=== PATIENT | female | born 2000 | race Caucasian/White ===

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

== ENCOUNTER 2019-08-04 16:22 | Emergency (ER) | payer BC ==
--- NOTE | 2019-08-04 16:29 | ERPHSYRPT ---
- History of Present Illness Time Seen by Provider: 08/04/19 16:29 Historian: patient Exam Limitations: no limitations Physician History: This is a 19-year-old white female who is 20 weeks and presents with flank pain. She does not have abdominal pain she does not have any vaginal discharge. She is not having any vaginal bleeding. Her symptoms have been present for approximately 5 days and getting worse. She has not had fevers. She has had no diarrhea. No cough symptoms. Timing/Duration: day(s) Activities at Onset: none Abdominal Pain Onset Location: flank (Bilateral) Pain Radiation: no radiation Severity of Pain-Max: mild Severity of Pain-Current: mild Modifying Factors: Improves With: nothing Associated Symptoms: denies symptoms Previous symptoms: no prior history Allergies/Adverse Reactions: nickel Allergy (Verified 08/04/19 16:35) Home Medications: Vit#96/Ferrous Fum/FA [ Tablet] 1 ea DAILY 08/04/19 [History] Hx Influenza Vaccination/Date Given: No Hx Pneumococcal Vaccination/Date Given: No - Review of Systems Constitutional: No Symptoms Eyes: No Symptoms Ears, Nose, & Throat: No Symptoms Respiratory: No Symptoms Cardiac: No Symptoms Abdominal/Gastrointestinal: No Symptoms Genitourinary Symptoms: No Symptoms Musculoskeletal: No Symptoms Skin: No Symptoms Neurological: No Symptoms Psychological: No Symptoms Endocrine: No Symptoms Hematologic/Lymphatic: No Symptoms Immunological/Allergic: No Symptoms All Other Systems: Reviewed and Negative - Past Medical History Pertinent Past Medical History: Yes Neurological History: Other ENT History: No Pertinent History Cardiac History: No Pertinent History Respiratory History: No Pertinent History Endocrine Medical History: No Pertinent History Musculoskeletal History: No Pertinent History GI Medical History: No Pertinent History History: No Pertinent History Psycho-Social History: No Pertinent History Female Reproductive Disorders: No Pertinent History Other Medical History: febrile seizures as a young child - Past Surgical History Past Surgical History: Yes Neuro Surgical History: No Pertinent History Cardiac: No Pertinent History Respiratory: No Pertinent History Gastrointestinal: Cholecystectomy Genitourinary: No Pertinent History Musculoskeletal: No Pertinent History Female Surgical History: No Pertinent History - Social History Smoking Status: Never smoker Exposure to second hand smoke: Yes Drug Use: none Patient Lives Alone: No - Nursing Vital Signs Nursing Vital Signs: Initial Vital Signs Pulse Rate 104 H 08/04/19 17:23 Respiratory Rate 18 08/04/19 17:23 Blood Pressure 133/62 08/04/19 17:23 O2 Sat by Pulse Oximetry 97 08/04/19 17:23 Pain Scale Pain Intensity 0 - Physical Exam General Appearance: no apparent distress, alert, anxiety Eye Exam: PERRL/EOMI, eyes nml inspection Ears, Nose, Throat Exam: dry mucous membranes Neck Exam: normal inspection, non-tender, supple, full range of motion Respiratory Exam: normal breath sounds, lungs clear, airway intact, No chest tenderness, No respiratory distress Cardiovascular Exam: regular rate/rhythm, normal heart sounds, normal peripheral pulses Gastrointestinal/Abdomen Exam: soft, normal bowel sounds, No tenderness Pelvic Exam: not done Rectal Exam: not done Back Exam: normal inspection, normal range of motion, CVA tenderness (Bilateral mild) Extremity Exam: normal inspection, normal range of motion, pelvis stable Neurologic Exam: alert, oriented x 3, cooperative, 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 Skin Exam: normal color, warm, dry Lymphatic Exam: No adenopathy SpO2 Interpretation: normal O2 Delivery: Room Air - Course Nursing assessment & vital signs reviewed: Yes Ordered Tests: Active Orders 24 hr Category Date Time Status IV Insertion STAT Care 08/04/19 16:43 Active CULTURE,URINE Stat Lab 08/04/19 16:40 Received UA W/RFX UR CULTURE Stat Lab 08/04/19 16:40 Completed Medication Summary Generic Name Dose Route Start Last Admin Trade Name Freq PRN Reason Stop Dose Admin Ceftriaxone Sodium/Dextrose 1 g in 50 mls @ 100 mls/hr 08/04/19 17:02 17:14 Rocephin 1 Gm-D5w 50 Ml Bag IV 08/04/19 17:31 100 ml/hr STAT STA 100 mls/hr Administration Sodium Chloride 1,000 mls @ 999 mls/hr 08/04/19 17:04 08/04/19 17:13 Sodium Chloride 0.9% 1000 Ml IV 08/04/19 18:04 999 mls/hr .Q1H1M STA Administration Discontinued Medications Generic Name Dose Route Start Last Admin Trade Name Freq PRN Reason Stop Dose Admin Sodium Chloride Confirm 08/04/19 17:06 Sodium Chloride 0.9% 1000 Ml Administered 08/04/19 17:07 Dose 1,000 mls @ ud .ROUTE .[facility] ONE Ceftriaxone Sodium/Dextrose Confirm 08/04/19 17:06 Rocephin 1 Gm-D5w 50 Ml Bag Administered 08/04/19 17:07 Dose 1 g in 50 mls @ ud IV .[facility] ONE Lab/Rad Data: Laboratory Results 08/04/19 Range/Units 16:40 Urine Color [place] (YELLOW) Urine Appearance TURBID (CLEAR) Urine pH 6.0 (5-6) Ur Specific [place] 1.017 (1.005-1.025) Urine Protein 100 (Negative) Urine Ketones MODERATE (NEGATIVE) Urine Blood SMALL (0-5) Norman/ul Urine Nitrite POSITIVE (NEGATIVE) Urine Bilirubin NEGATIVE (NEGATIVE) Urine Urobilinogen NEGATIVE (0-1) mg/dL Ur Leukocyte Esterase LARGE (NEGATIVE) Urine WBC (Auto) >100 (0-5) /HPF Urine RBC (Auto) 26-50 (0-2) /HPF U Epithel Cells (Auto) NONE (FEW) /HPF Urine Bacteria (Auto) MODERATE (NEGATIVE) /HPF Urine Mucus (Auto) SLIGHT (NEGATIVE) /HPF Urine Culture Reflexed YES (NO) Urine Glucose NEGATIVE (NEGATIVE) mg/dL - Progress Progress: improved Counseled pt/family regarding: lab results, diagnosis, need for follow-up - Departure Departure Disposition: Home Clinical Impression: Urinary tract infection during Condition: Stable Critical Care Time: No Referrals: KEILA GABRIEL [Primary Care Provider] - Additional Instructions: Drink plenty of fluids. Use Tylenol for pain and fever. Follow-up with your center medical director for persistent symptoms. Take medication as prescribed Prescriptions: Cephalexin Mh 500 mg [Keflex 500 mg] 500 mg PO TID #21 capsule
[2019-08-04 16:50] LABS: Appearance TURBID (CLEAR); Bacteria MODERATE /HPF (NEGATIVE); Bilirubin NEGATIVE (NEGATIVE); Blood SMALL Ery/ul (0-5); Glucose NEGATIVE (NEGATIVE); Ketones MODERATE (NEGATIVE); Leukocyte Esterase LARGE (NEGATIVE); Mucus SLIGHT /HPF (NEGATIVE); Nitrite POSITIVE (NEGATIVE); Protein,Urine Dip 100 (Negative); RBC 26-50 /HPF (0-2); Specific Gravity 1.017 (1.005-1.025); Urobilinogen NEGATIVE mg/dL (0-1); WBC >100 /HPF (0-5)
[2019-08-04] MEDS ORDERED: ROCEPHIN 1 Gm-D5w 50 ml Bag** 1 G/50 ML IVPB IV STA (17:02)
[2019-08-04] MEDS ORDERED: Sodium Chloride 0.9% 1000 ML 1,000 ML IV STA (17:04)
[2019-08-04] MEDS ORDERED: Sodium Chloride 0.9% 1000 ML 1,000 ML ONE (17:06)
[2019-08-04] MEDS ORDERED: ROCEPHIN 1 Gm-D5w 50 ml Bag** 1 G/50 ML IVPB IV ONE (17:06)
[2019-08-04 18:03] VITALS: BP 118/70; PULSE 97; O2SAT 98
== END 2019-08-04 18:04 | disposition home or self-care (01) ==
LOC: ED 16:22
DX: O23.42 Unspecified infection of urinary tract in pregnancy, second trimester (principal); Z3A.20 20 weeks gestation of pregnancy
CPT/HCPCS: 36000; 81001; 87077; 87086; 87186; 99284; J0696

== ENCOUNTER 2019-10-07 14:23 | Observation (INO) | payer BC ==
[2019-10-07 14:49] VITALS: BP 134/60; PULSE 71
== END 2019-10-07 15:40 | disposition home or self-care (01) ==
LOC: OB 14:23
PROVIDERS: ADMIT Family Medicine; ATTEND Family Medicine
DX: Z34.83 Encounter for supervision of other normal pregnancy, third trimester (principal)
CPT/HCPCS: G0378

== ENCOUNTER 2019-11-06 17:08 | Observation (INO) | payer BC ==
[2019-11-06 17:45] VITALS: BP 115/57; PULSE 79; O2SAT 97
== END 2019-11-06 18:08 | disposition home or self-care (01) ==
LOC: OB 17:08
PROVIDERS: ADMIT Family Medicine; ATTEND Family Medicine
DX: Z34.83 Encounter for supervision of other normal pregnancy, third trimester (principal)
CPT/HCPCS: 59025; G0378

== ENCOUNTER 2019-11-10 13:10 | Observation (INO) | payer BC ==
--- NOTE | 2019-11-10 18:58 | XRAY ---
Indication: Evaluate DONTE. Limited OB ultrasound demonstrates single viable intrauterine currently in cephalic presentation with heart rate 135 BPM. Four-quadrant DONTE is 10.8 cm.
== END 2019-11-10 14:30 | disposition home or self-care (01) ==
LOC: OB 13:10
PROVIDERS: ADMIT Family Medicine; ATTEND Family Medicine
DX: Z34.93 Encounter for supervision of normal pregnancy, unspecified, third trimester (principal)
CPT/HCPCS: 59025; 76815; G0378

== ENCOUNTER 2019-11-12 16:31 | Observation (INO) | payer BC ==
[2019-11-12 17:10] VITALS: BP 118/58; PULSE 77
[2019-11-12 17:19] LABS: Absolute Neutrophil Ct (ANC) 5.57 (1.4-6.9); BASOPHIL % 0.3 % (0.0-0.4); Basophil (Absolute #) 0.02 (0-0.4); Eosinophil % 0.8 % (0.00-5.0); Eosinophil (Absolute #) 0.06 (0-0.5); Hematocrit 33.8 % (35-47); Hemoglobin 11.1 gm/dl (12.0-16.0); Lymphocytes % 15.4 % (24.0-44.0); Mean Cell Volume 89.2 fl (78-100); Mean Corpuscular Hemoglobin 29.3 pg (26-32); Mean Corpuscular Hgb Concent. 32.8 g/dl (32-36); Mean Platelet Volume 10.8 fl (7.5-11.0); Monocytes % 5.6 % (0.0-12.0); Neutrophil % 77.9 % (36.0-66.0); Platelet Count 189 K/mm3 (150-450); Red Blood Count 3.79 M/mm3 (4.1-5.4); Red Cell Distribution Width 12.7 % (11.5-14.0); White Blood Count 7.2 K/mm3 (4.0-10.5)
[2019-11-12 18:00] LABS: ALBUMIN 3.4 g/dL (3.5-5.0); ALKALINE PHOSPHATASE 110 U/L (38-126); ANION GAP 10.7 MEQ/L (5-15); BLOOD UREA NITROGEN 9 mg/dL (7-17); CHLORIDE 102 mmol/L (98-107); Calcium 9.2 mg/dL (8.4-10.2); Carbon Dioxide 26 mmol/L (22-30); Creatinine 1 0.53 mg/dL (0.52-1.04); Glucose 80 mg/dL (74-106); Potassium 3.8 mmol/L (3.5-5.1); SGOT/AST 22 U/L (14-36); SGPT/ALT 17 U/L (0-35); SODIUM 135 mmol/L (137-145); Total Protein 6.8 g/dL (6.3-8.2)
== END 2019-11-12 17:53 | disposition home or self-care (01) ==
LOC: OB 16:31
PROVIDERS: ADMIT Family Medicine; ATTEND Family Medicine
DX: O36.5999 Maternal care for other known or suspected poor fetal growth, unspecified trimester, other fetus (principal)
CPT/HCPCS: 36415; 59025; 80053; 83036; 84443; 85025; G0378

== ENCOUNTER 2019-11-16 08:46 | Observation (INO) | payer BC ==
[2019-11-16 13:13] VITALS: BP 120/64; PULSE 72
--- NOTE | 2019-11-16 14:15 | XRAY ---
Indication: Intrauterine growth retardation. Ultrasound biophysical profile study was performed. Comparison: None for this . There is a single viable intrauterine in cephalic presentation with heart rate 142 BPM. Four-quadrant DONTE is 11.6 cm. 2 points given for breathing, movements, tone, and qualitative amniotic fluid volume. Impression: Total biophysical profile score is 8 out of 8.
== END 2019-11-16 14:05 | disposition home or self-care (01) ==
LOC: LAB 08:46 → OB 12:28
PROVIDERS: ADMIT Obstetrics & Gynecology; ATTEND Obstetrics & Gynecology
DX: Z34.83 Encounter for supervision of other normal pregnancy, third trimester (principal)
CPT/HCPCS: 36415; 59025; 76818; 82951; 82952; G0378

== ENCOUNTER 2019-11-19 13:40 | Observation (INO) | payer BC ==
[2019-11-19 15:35] VITALS: BP 112/63; PULSE 78
== END 2019-11-19 14:50 | disposition home or self-care (01) ==
LOC: OB 13:40
PROVIDERS: ADMIT Family Medicine; ATTEND Family Medicine
DX: Z34.83 Encounter for supervision of other normal pregnancy, third trimester (principal)
CPT/HCPCS: 59025; G0378

== ENCOUNTER 2019-11-23 14:35 | Observation (INO) | payer BC | END 2019-11-23 16:02 | disposition home or self-care (01) | LOC: OB 14:35 | PROVIDERS: ADMIT Family Medicine; ATTEND Family Medicine | DX: Z34.83 Encounter for supervision of other normal pregnancy, third trimester (principal) | CPT/HCPCS: 59025; G0378 ==

== ENCOUNTER 2019-12-09 16:27 | Inpatient (IN) | payer BC ==
[2019-12-09] MEDS ORDERED: Cervidil 10 MG VAG SCH (18:00)
[2019-12-09] MEDS ORDERED: BRETHINE 1 MG/ML SQ PRN (18:00)
[2019-12-09 21:53] LABS: Absolute Neutrophil Ct (ANC) 5.85 (1.4-6.9); BASOPHIL % 0.3 % (0.0-0.4); Basophil (Absolute #) 0.02 (0-0.4); Eosinophil % 1.8 % (0.00-5.0); Eosinophil (Absolute #) 0.14 (0-0.5); Hematocrit 33.1 % (35-47); Hemoglobin 10.6 gm/dl (12.0-16.0); Lymphocyte (Absolute #) 1.19 (1.0-4.6); Lymphocytes % 15.4 % (24.0-44.0); Mean Cell Volume 88.5 fl (78-100); Mean Corpuscular Hemoglobin 28.3 pg (26-32); Mean Platelet Volume 11.7 fl (7.5-11.0); Monocyte (Absolute #) 0.54 (0.0-1.3); Neutrophil % 75.5 % (36.0-66.0); Platelet Count 210 K/mm3 (150-450); Red Blood Count 3.74 M/mm3 (4.1-5.4); Red Cell Distribution Width 13.4 % (11.5-14.0); White Blood Count 7.7 K/mm3 (4.0-10.5)
[2019-12-09 23:49] LABS: Amphetamine,Urine NEGATIVE (NEGATIVE); Barbiturate,Urine NEGATIVE (NEGATIVE); Benzodiazepine,Urine NEGATIVE (NEGATIVE); Cocaine,Urine NEGATIVE (NEGATIVE); Methadone,Urine NEGATIVE (NEGATIVE); Opiate,Urine NEGATIVE (NEGATIVE); PCP,Urine NEGATIVE (NEGATIVE); THC,Urine POSITIVE (NEGATIVE)
[2019-12-10] MEDS ORDERED: PITOCIN 30 UNITS/ LR 500 ML 30 UNITS/500 ML IV.SOLN. IV SCH (07:00)
[2019-12-10] MEDS ORDERED: XYLOCAINE 1% HCL 20 ML MDV IJ PRN (07:00)
[2019-12-10] MEDS: Lactated Ringers 1,000 ML IV SCH ×2 (08:41→09:51)
[2019-12-10] MEDS ORDERED: OMNIPEN 2 GM*** 2 G in Sodium Chloride 100ML MINI-BAG PLUS 100 ML IV ONE (08:52)
[2019-12-10] MEDS ORDERED: Anucort-HC SUPPOSITORY PR PRN (10:25)
[2019-12-10] MEDS ORDERED: TUCKS TP PRN (10:25)
[2019-12-10] MEDS ORDERED: Restoril 15 MG PO PRN (10:25)
[2019-12-10] MEDS ORDERED: Mylicon 80MG PO PRN (10:25)
[2019-12-10] MEDS ORDERED: Ambien 10 MG PO PRN (10:25)
[2019-12-10] MEDS ORDERED: Dulcolax 10 MG SUPP PR PRN (10:25)
[2019-12-10] MEDS ORDERED: CORTISONE 1% CREAM TP PRN (10:25)
[2019-12-10] MEDS ORDERED: Dermoplast Spray TP PRN (10:25)
[2019-12-10] MEDS: MOTRIN 400 MG PO PRN ×2 (10:49→17:47)
[2019-12-10] MEDS: TYLENOL EXTRA STRENGTH 500 MG PO PRN (14:09)
[2019-12-10] MEDS: THERAGRAN MULTIVITAMIN PO SCH (17:48)
[2019-12-10] MEDS: NORCO 5/325 MG PO PRN (20:02)
[2019-12-10] MEDS: Colace 100 MG PO SCH (21:10)
[2019-12-11] MEDS: MOTRIN 400 MG PO PRN ×3 (00:06→20:01)
[2019-12-11] MEDS: NORCO 5/325 MG PO PRN ×2 (01:26→21:11)
[2019-12-11 05:26] LABS: Absolute Neutrophil Ct (ANC) 6.69 (1.4-6.9); BASOPHIL % 0.3 % (0.0-0.4); Basophil (Absolute #) 0.03 (0-0.4); Eosinophil % 1.7 % (0.00-5.0); Eosinophil (Absolute #) 0.16 (0-0.5); Hematocrit 32.1 % (35-47); Hemoglobin 10.2 gm/dl (12.0-16.0); Lymphocytes % 19.2 % (24.0-44.0); Mean Cell Volume 89.2 fl (78-100); Mean Corpuscular Hemoglobin 28.3 pg (26-32); Mean Corpuscular Hgb Concent. 31.8 g/dl (32-36); Mean Platelet Volume 11.7 fl (7.5-11.0); Monocytes % 7.5 % (0.0-12.0); Neutrophil % 71.3 % (36.0-66.0); Platelet Count 173 K/mm3 (150-450); Red Cell Distribution Width 13.2 % (11.5-14.0); White Blood Count 9.4 K/mm3 (4.0-10.5)
[2019-12-11] MEDS: THERAGRAN MULTIVITAMIN PO SCH (09:01)
[2019-12-11] MEDS: FERREX 150 PO SCH (09:02)
[2019-12-11] MEDS: Colace 100 MG PO SCH ×2 (09:02→21:12)
[2019-12-11] MEDS ORDERED: FERROUS FUM PO SCH (10:00)
[2019-12-11] MEDS ORDERED: [UNRECOGNIZED DRUG - OTHER] PO SCH (10:00)
[2019-12-11] MEDS ORDERED: PRENATAL VIT PO SCH (10:00)
[2019-12-11] MEDS: TYLENOL EXTRA STRENGTH 500 MG PO PRN (14:06)
[2019-12-12] MEDS: MOTRIN 400 MG PO PRN (01:34)
[2019-12-12] MEDS: NORCO 5/325 MG PO PRN (02:43)
[2019-12-12 03:17] VITALS: O2SAT 98
[2019-12-12] MEDS: THERAGRAN MULTIVITAMIN PO SCH (09:20)
[2019-12-12] MEDS: FERREX 150 PO SCH (09:20)
[2019-12-12] MEDS: Colace 100 MG PO SCH (09:20)
[2019-12-12 09:43] VITALS: BP 122/68; PULSE 62
== END 2019-12-12 12:45 | disposition home or self-care (01) | DRG 807 ==
LOC: OB 17:56 → OBSVTOIN 12-10 08:35 → MED SURG 12-11 19:54
PROVIDERS: ADMIT Family Medicine; ATTEND Family Medicine
PROC: 10E0XZZ Delivery of Products of Conception, External Approach (ICD-10-PCS; principal; 2019-12-10)
DX: O80 Encounter for full-term uncomplicated delivery (principal); Z37.0 Single live birth; Z3A.39 39 weeks gestation of pregnancy
CPT/HCPCS: 36415; 80307; 85025; G0378; J0290; J2590; A9270-GY

== ENCOUNTER 2020-09-02 16:48 | Observation (INO) | payer BC ==
[2020-09-02 18:24] LABS: Appearance CLEAR (CLEAR); Bacteria RARE /HPF (NEGATIVE); Bilirubin NEGATIVE (NEGATIVE); Blood NEGATIVE Ery/ul (0-5); Epithelial Cells RARE /HPF (FEW); Glucose NEGATIVE (NEGATIVE); Ketones NEGATIVE (NEGATIVE); Leukocyte Esterase NEGATIVE (NEGATIVE); Nitrite NEGATIVE (NEGATIVE); Protein,Urine Dip NEGATIVE (Negative); Specific Gravity 1.003 (1.005-1.025); Urobilinogen NEGATIVE mg/dL (0-1)
[2020-09-02 19:58] VITALS: BP 129/78; PULSE 74; O2SAT 99
== END 2020-09-02 19:30 | disposition home or self-care (01) ==
LOC: OB 16:48
PROVIDERS: ADMIT Family Medicine; ATTEND Family Medicine
DX: Z34.82 Encounter for supervision of other normal pregnancy, second trimester (principal); Z3A.27 27 weeks gestation of pregnancy
CPT/HCPCS: 81001; G0378

== ENCOUNTER 2020-10-18 17:50 | Observation (INO) | payer BC ==
[2020-10-18 18:32] LABS: Absolute Neutrophil Ct (ANC) 5.96 (1.4-6.9); BASOPHIL % 0.3 % (0.0-0.4); Basophil (Absolute #) 0.02 (0-0.4); Eosinophil % 0.9 % (0.00-5.0); Eosinophil (Absolute #) 0.07 (0-0.5); Hematocrit 30.9 % (35-47); Hemoglobin 9.5 gm/dl (12.0-16.0); Lymphocytes % 14.5 % (24.0-44.0); Mean Cell Volume 83.7 fl (78-100); Mean Corpuscular Hemoglobin 25.7 pg (26-32); Mean Corpuscular Hgb Concent. 30.7 g/dl (32-36); Mean Platelet Volume 10.8 fl (7.5-11.0); Monocyte (Absolute #) 0.44 (0.0-1.3); Monocytes % 5.8 % (0.0-12.0); Neutrophil % 78.5 % (36.0-66.0); Platelet Count 203 K/mm3 (150-450); Red Blood Count 3.69 M/mm3 (4.1-5.4); Red Cell Distribution Width 13.7 % (11.5-14.0); White Blood Count 7.6 K/mm3 (4.0-10.5)
[2020-10-18 18:41] LABS: Creatinine, Urine Random 164.3 mg/dl
[2020-10-18 18:52] LABS: ALBUMIN 3.4 g/dL (3.5-5.0); ALKALINE PHOSPHATASE 126 U/L (38-126); ANION GAP 11.5 MEQ/L (5-15); BLOOD UREA NITROGEN 5 mg/dL (7-17); CHLORIDE 106 mmol/L (98-107); Calcium 8.8 mg/dL (8.4-10.2); Carbon Dioxide 20 mmol/L (22-30); Creatinine 1 0.46 mg/dL (0.52-1.04); EST GLOMERULAR FILTRATION RATE > 60.0 ML/MIN; Glucose 104 mg/dL (74-106); Potassium 3.5 mmol/L (3.5-5.1); SGOT/AST 18 U/L (14-36); SGPT/ALT 11 U/L (0-35); SODIUM 134 mmol/L (137-145); Total Protein 6.6 g/dL (6.3-8.2)
[2020-10-18 19:47] VITALS: BP 120/76; PULSE 70; O2SAT 97
--- NOTE | 2020-10-19 08:40 | XRAY ---
Indication: Low heart tones. 2-dimensional OB ultrasound performed. Comparison: July 25, 2020. Again there is a single viable intrauterine now in cephalic presentation. heart rate 139 BPM. anatomy previously documented. BPD measures 8.32 cm corresponding to 33 weeks 3 days. HC measures 31.38 cm corresponding to 35 weeks 1 day. AC measures 29.60 cm corresponding to 33 weeks 4 days. FL measures 6.52 cm corresponding to 33 weeks 4 days. Estimated weight 5 lb. 0 oz., +/-12 ounces. Approximately 3 percentile. DONTE is 12.4 cm. Impression: Again single viable intrauterine with mean gestational age 34 weeks 0 days. There has been progression of . No new/acute findings.
--- NOTE | 2020-10-19 08:58 | XRAY ---
Indication: Low heart tones. Ultrasound biophysical profile study performed. Comparison: None for this . There is a single intrauterine with heart rate 139 bpm. Four-quadrant DONTE is 12.4 cm. 2 points given for breathing, movements, tone, and qualitative amniotic fluid volume. Impression: Total biophysical profile score is 8 out of 8.
== END 2020-10-18 19:55 | disposition home or self-care (01) ==
LOC: OB 17:50
PROVIDERS: ADMIT Family Medicine; ATTEND Family Medicine
DX: O36.8330 Maternal care for abnormalities of the fetal heart rate or rhythm, third trimester, not applicable or unspecified (principal); Z3A.36 36 weeks gestation of pregnancy
CPT/HCPCS: 36415; 76816; 76818; 80053; 82570; 84156; 84550; 85025; G0378

== ENCOUNTER 2020-10-26 15:06 | Observation (INO) | payer BC ==
[2020-10-26] MEDS ORDERED: VENOFER IV SCH (16:00)
[2020-10-26] MEDS ORDERED: SODIUM CHLORIDE 0.9% IV SCH (16:00)
[2020-10-26 16:39] VITALS: BP 114/57; PULSE 81; O2SAT 99
== END 2020-10-26 17:12 | disposition home or self-care (01) ==
LOC: OB 15:06
PROVIDERS: ADMIT Family Medicine; ATTEND Family Medicine
DX: Z34.83 Encounter for supervision of other normal pregnancy, third trimester (principal); Z3A.38 38 weeks gestation of pregnancy
CPT/HCPCS: 59025; G0378; J1756

== ENCOUNTER 2020-11-08 04:14 | Inpatient (IN) | payer BC ==
[2020-11-08] MEDS ORDERED: BRETHINE 1 MG/ML SQ PRN (15:27)
[2020-11-08] MEDS ORDERED: Nubain 10 MG/ML IV PRN (15:27)
[2020-11-08] MEDS ORDERED: Zofran 4 MG/2 ML VIAL IV PRN (15:27)
[2020-11-08] MEDS ORDERED: STADOL 2 MG IV PRN (15:27)
[2020-11-08] MEDS ORDERED: PITOCIN 30 UNITS/ LR 500 ML 30 UNITS/500 ML IV.SOLN. IV SCH (15:30)
[2020-11-08] MEDS ORDERED: Cervidil 10 MG VAG SCH (16:00)
[2020-11-08 18:42] LABS: Hematocrit 31.7 % (35-47); Hemoglobin 9.7 gm/dl (12.0-16.0); Mean Corpuscular Hgb Concent. 30.6 g/dl (32-36); Platelet Count 161 K/mm3 (150-450); Red Blood Count 3.73 M/mm3 (4.1-5.4); Red Cell Distribution Width 16.7 % (11.5-14.0); White Blood Count 7.5 K/mm3 (4.0-10.5)
[2020-11-08 18:58] LABS: Amphetamine,Urine NEGATIVE (NEGATIVE); Barbiturate,Urine NEGATIVE (NEGATIVE); Benzodiazepine,Urine NEGATIVE (NEGATIVE); Cocaine,Urine NEGATIVE (NEGATIVE); Methadone,Urine NEGATIVE (NEGATIVE); Opiate,Urine NEGATIVE (NEGATIVE); PCP,Urine NEGATIVE (NEGATIVE); THC,Urine NEGATIVE (NEGATIVE)
[2020-11-08 19:11] LABS: BAND 7 % (0.0-2.0); Basophil 2 % (0.0-1.0); Lymphocytes 19 % (24-44); Monocyte 5 % (0.0-12.0); Neutrophils 67 % (36.0-66.0); Platelet Estimate NORMAL (NORMAL); Total Cells Counted 100
[2020-11-09] MEDS ORDERED: Lactated Ringers 1,000 ML IV ONE ×2 (01:45→03:35)
[2020-11-09] MEDS ORDERED: OB EPIDURAL NAROPIN/SUFENTANIL IN NACL EPIDURAL PRN (03:35)
[2020-11-09] MEDS ORDERED: Ephedrine Sulfate 50 MG/ML IV PRN (03:35)
[2020-11-09] MEDS ORDERED: BRETHINE 1 MG/ML SQ PRN (05:00)
[2020-11-09] MEDS ORDERED: PITOCIN 30 UNITS/ LR 500 ML 30 UNITS/500 ML IV.SOLN. IV SCH (05:00)
[2020-11-09] MEDS ORDERED: Lactated Ringers 1,000 ML IV SCH (05:00)
[2020-11-09] MEDS ORDERED: Dermoplast Spray TP PRN (07:33)
[2020-11-09] MEDS ORDERED: NORCO 5/325 MG PO PRN (07:33)
[2020-11-09] MEDS ORDERED: TUCKS TP PRN (07:33)
[2020-11-09] MEDS: TYLENOL EXTRA STRENGTH 500 MG PO PRN ×2 (07:48→16:04)
[2020-11-09 08:04] LABS: ABO TYPING A; RH TYPING NEGATIVE
[2020-11-09 08:06] LABS: ANTIBODY SCREEN POSITIVE (NEGATIVE)
[2020-11-09] MEDS: Colace 100 MG PO SCH ×2 (08:08→21:20)
[2020-11-09] MEDS: FERREX 150 PO SCH (08:08)
[2020-11-09] MEDS: MOTRIN 400 MG PO PRN ×2 (12:52→21:20)
[2020-11-09] MEDS ORDERED: XYLOCAINE 1% HCL 20 ML MDV IJ PRN (15:27)
[2020-11-09] MEDS ORDERED: Rhogam Plus 300 MCG IM ONE (15:55)
[2020-11-09 16:06] LABS: Absolute Neutrophil Ct (ANC) 8.18 (1.4-6.9); BASOPHIL % 0.2 % (0.0-0.4); Basophil (Absolute #) 0.02 (0-0.4); Eosinophil % 0.3 % (0.00-5.0); Eosinophil (Absolute #) 0.03 (0-0.5); Hematocrit 33.8 % (35-47); Hemoglobin 10.4 gm/dl (12.0-16.0); Lymphocyte (Absolute #) 1.28 (1.0-4.6); Lymphocytes % 12.7 % (24.0-44.0); Mean Cell Volume 84.7 fl (78-100); Mean Corpuscular Hemoglobin 26.1 pg (26-32); Mean Corpuscular Hgb Concent. 30.8 g/dl (32-36); Monocyte (Absolute #) 0.53 (0.0-1.3); Monocytes % 5.3 % (0.0-12.0); Neutrophil % 81.5 % (36.0-66.0); Platelet Count 187 K/mm3 (150-450); Red Blood Count 3.99 M/mm3 (4.1-5.4); Red Cell Distribution Width 16.6 % (11.5-14.0)
[2020-11-10] MEDS: TYLENOL EXTRA STRENGTH 500 MG PO PRN ×2 (00:23→23:30)
[2020-11-10] MEDS: MOTRIN 400 MG PO PRN ×3 (05:48→20:38)
[2020-11-10] MEDS: FERREX 150 PO SCH (10:24)
[2020-11-10] MEDS: Colace 100 MG PO SCH ×2 (10:24→20:38)
[2020-11-10 10:41] VITALS: O2SAT 98
--- NOTE | 2020-11-11 08:46 | PCM.DS ---
Discharge Summary Date of Admission: 11/09/20 04:14 Admitting Physician: KEILA MALDONADO Consults: Consults on Case 11/09/20 03:36 Notify Anesthesia Provider PRN Primary Care Provider: KEILA MALDONADO Allergies Allergies nickel Allergy (Mild, Verified 11/02/20 12:25) Rash Hospital Summary - Hospital Course Hospital Course: Pt is 20 yo now who came in at 39w 4d for IOL due to concern for slow growth (had been seen by MFM). She delivered early in the morning after having received the cervadil. She went from 7 cm to delivered precipitously. No complications. No vaginal lacerations. Baby is doing well. Pt had a murmur this morning so will get an echocardiogram before discharge to home. She does have pedal edema. No complaint of cough. - Vitals & Intake/Output Vital Signs: Vital Signs Temperature 97.6 F 11/11/20 02:00 Pulse Rate 68 11/11/20 02:00 Respiratory Rate 16 11/11/20 02:00 Blood Pressure 112/56 11/11/20 02:00 O2 Sat by Pulse Oximetry 98 11/11/20 02:00 Intake & Output: Intake & Output 11/08/20 11/09/20 11/10/20 11/11/20 11:59 11:59 11:59 11:59 Intake Total 700 2044 1400 Balance 700 2044 1400 Weight 110.677 kg - Lab Result Diagrams: 11/09/20 15:54 Lab Results-Last 24 Hrs: Lab Results-Last 24 Hours 11/08/20 Range/Units 18:39 Hep Bs Antigen Negative (Negative) - Radiology Exams Ordered Rad Exams-Entire Visit: Radiology Procedures Category Date Time Status ECHO W/2D AND DOPPLER [US] Routine Exams 11/11/20 Ordered Discharge Exam General Appearance: no apparent distress, alert Neurologic Exam: oriented x 3, cooperative Eye Exam: eyes nml inspection Ears, Nose, Throat Exam: moist mucous membranes Respiratory Exam: normal breath sounds, lungs clear, No crackles/rales, No rhonchi, No wheezing Cardiovascular Exam: regular rate/rhythm, murmur (II/ sys murmur), other (spit S1) Gastrointestinal/Abdomen Exam: soft, other (fundus firm inferior to umbilicus) Extremity Exam: normal inspection, pedal edema (trace bilat) Skin Exam: normal color, warm, dry, No rash Final Diagnosis/Problem List - Final Discharge Diagnosis/Problem (1) Vaginal delivery Current Visit: No Status: Acute Assessment & Plan: Home today after her echocardiogram. Doing well. Code(s): O80 - ENCOUNTER FOR FULL-TERM UNCOMPLICATED DELIVERY (2) Anemia Current Visit: Yes Status: Acute Assessment & Plan: home on iron. Code(s): D64.9 - ANEMIA, UNSPECIFIED (3) Heart murmur Current Visit: Yes Status: Acute Assessment & Plan: echo today. Code(s): R01.1 - CARDIAC MURMUR, UNSPECIFIED - Discharge Disposition: Home, Self-Care Condition: Good Prescriptions: New Ferrous Sulfate 325 mg [Feosol 325 mg] 325 mg PO DAILY #30 tablet Ibuprofen 600 mg PO QID PRN #35 tablet PRN Reason: Pain Continue Vit#96/Ferrous Fum/FA [ Tablet] 1 ea PO DAILY Follow up with: KEILA MALDONADO [Primary Care Provider] -
[2020-11-11] MEDS: FERREX 150 PO SCH (09:43)
[2020-11-11] MEDS: Colace 100 MG PO SCH (09:43)
[2020-11-11 12:13] VITALS: BP 130/62; PULSE 64
== END 2020-11-11 11:45 | disposition home or self-care (01) | DRG 807 ==
LOC: OB 04:14 → OBSVTOIN 11-09 04:14
PROVIDERS: ADMIT Family Medicine; ATTEND Family Medicine
PROC: 10E0XZZ Delivery of Products of Conception, External Approach (ICD-10-PCS; principal; 2020-11-09)
DX: O80 Encounter for full-term uncomplicated delivery (principal); Z37.0 Single live birth; Z3A.39 39 weeks gestation of pregnancy; D64.9 Anemia, unspecified; R01.1 Cardiac murmur, unspecified
CPT/HCPCS: 36415; 80307; 85025; 85461; 86850; 86900; 86901; 87340; 93306; G0378; J2300; J2590; J2790; A9270-GY

== ENCOUNTER 2023-04-10 16:01 | Emergency (ER) | payer SELFPAY ==
--- NOTE | 2023-04-10 16:27 | ERPHSYRPT ---
- History of Present Illness Time Seen by Provider: 04/10/23 16:27 Source: patient Exam Limitations: no limitations Physician History: This is a 22-year-old left-handed white female patient Dr. Stout who has a tetanus status is up-to-date and accidentally cut the palmar aspect of her right index finger distally with a knife prior to arrival when she attempted to open up sandwich meat package. Timing/Duration: today Quality: painful Severity: mild Location: hands (Left hand palmar aspect distal finger) Associated Symptoms: denies symptoms Allergies/Adverse Reactions: nickel Allergy (Mild, Verified 04/10/23 16:43) Rash Home Medications: Quetiapine Fumarate 100 mg [Seroquel 100 MG] 100 mg PO DAILY 04/10/23 [History] buPROPion HCl [Wellbutrin Sr] 200 mg PO DAILY 04/10/23 [History] Hx Influenza Vaccination/Date Given: No Hx Pneumococcal Vaccination/Date Given: No Travel Risk - International Travel Have you traveled outside of the country in past 3 weeks: No - Coronavirus Screening Are you exhibiting any of the following symptoms?: No Close contact with a COVID-19 positive Pt in past 14-21 Days: No - Vaccine Status Have you recieved a Covid-19 vaccination: No - Review of Systems Constitutional: No Symptoms Eyes: No Symptoms Ears, Nose, & Throat: No Symptoms Respiratory: No Symptoms Cardiac: No Symptoms Abdominal/Gastrointestinal: No Symptoms Genitourinary Symptoms: No Symptoms Musculoskeletal: No Symptoms Skin: Other (Laceration left index finger palmar aspect distal) Neurological: No Symptoms Psychological: No Symptoms Endocrine: No Symptoms Hematologic/Lymphatic: No Symptoms Immunological/Allergic: No Symptoms All Other Systems: Reviewed and Negative - Past Medical History Pertinent Past Medical History: Yes Neurological History: Other ENT History: No Pertinent History Cardiac History: No Pertinent History Respiratory History: No Pertinent History Endocrine Medical History: No Pertinent History Musculoskeletal History: No Pertinent History GI Medical History: Gallbladder Disease History: No Pertinent History Psycho-Social History: No Pertinent History Female Reproductive Disorders: No Pertinent History Other Medical History: febrile seizures as a young child, gallbladder removed 2018 - Past Surgical History Past Surgical History: Yes Neuro Surgical History: No Pertinent History Cardiac: No Pertinent History Respiratory: No Pertinent History Gastrointestinal: Cholecystectomy Genitourinary: No Pertinent History Musculoskeletal: No Pertinent History Female Surgical History: No Pertinent History Other Surgical History: tubes in ears when little,gallbladder 2019 - Social History Smoking Status: Never smoker Exposure to second hand smoke: Yes Drug Use: none Patient Lives Alone: No - Nursing Vital Signs Nursing Vital Signs: Initial Vital Signs Temperature 98.8 F 04/10/23 16:33 Pulse Rate 80 04/10/23 16:33 Blood Pressure 129/65 04/10/23 16:33 O2 Sat by Pulse Oximetry 98 04/10/23 16:33 Pain Scale Pain Intensity 5 - Physical Exam General Appearance: no apparent distress, alert Eye Exam: PERRL/EOMI, eyes nml inspection Ears, Nose, Throat Exam: normal ENT inspection, moist mucous membranes Neck Exam: normal inspection, non-tender, supple, full range of motion Respiratory Exam: airway intact, No chest tenderness, No respiratory distress Gastrointestinal/Abdomen Exam: No tenderness Pelvic Exam: not done Rectal Exam: not done Back Exam: normal inspection, normal range of motion, No CVA tenderness, No vertebral tenderness Extremity Exam: normal range of motion, pelvis stable, tenderness (1 cm horizontally oriented laceration palmar aspect distal left index finger. No active bleeding. Neurovascularly intact. Tendons intact) Neurologic Exam: alert, oriented x 3, cooperative, department chairperson II-XII nml as tested, normal mood/affect, nml cerebellar function, nml station & gait, sensation nml Skin Exam: laceration Lymphatic Exam: No adenopathy (See above extremity exam section) SpO2 Interpretation: normal O2 Delivery: Room Air Procedures - Laceration/Wound Repair Left Distal Volar Finger Time of Procedure: 16:55 Wound Location: Left, hand (Left index finger distally. Horizontally oriented) Wound Length (cm): 1 Wound's Depth, Shape: superficial, linear Wound Explored: clean (Wound explored to the base in a bloodless field. No foreign body noted) Irrigated: Yes Hibiclens Prep: Yes Wound Repaired With: Steri-strips, Dermabond (And benzoin solution) - Course Nursing assessment & vital signs reviewed: Yes - Progress Progress: improved Progress Note: 04/10/23 17:07 This patient's medical issue is 1 of low complexity. Level of complexity and the work-up performed based on review the patient's past medical history, review of patient's medication list, review the patient drug allergy list, history of present illness and physical findings on examination. No radiographic or laboratory studies necessary in this patient. Counseled pt/family regarding: diagnosis Medical Desision Making - Diagnostic Testing Diagnostic test were ordered, analyzed, and reviewed by me: No - Risk of complications Minimal Risk: Minimal risk of morbidity - Departure Departure Disposition: Home Clinical Impression: Laceration of left index finger Condition: Stable Critical Care Time: No Referrals: JUNE STOUT MD [Primary Care Provider] - Follow up/PCP as directed Additional Instructions: Keep pressure dressing in place for 24 hours. After 24 hours may remove the top dressing and leave the Steri-Strips in place. Trim the Steri-Strips as they curl up. Use Tylenol and ibuprofen for pain control.
[2023-04-10 16:43] VITALS: TEMP 98.8; O2SAT 98
[2023-04-10 17:05] VITALS: BP 138/77; PULSE 71
== END 2023-04-10 17:14 | disposition home or self-care (01) ==
LOC: ED 16:01
DX: S61.210A Laceration without foreign body of right index finger without damage to nail, initial encounter (principal); W26.0XXA Contact with knife, initial encounter; Y93.G1 Activity, food preparation and clean up; Z79.899 Other long term (current) drug therapy; Z28.310 Unvaccinated for COVID-19
CPT/HCPCS: 12001; 99281

== ENCOUNTER 2023-10-20 18:54 | Emergency (ER) | payer OTHER ==
[2023-10-20 19:58] VITALS: RESP 18; TEMP 97.9
[2023-10-20 20:02] VITALS: PULSE 76
[2023-10-20 20:07] VITALS: O2SAT 98
--- NOTE | 2023-10-20 20:10 | ERPHSYRPT ---
- History of Present Illness Time Seen by Provider: 10/20/23 20:10 Source: patient, family Exam Limitations: no limitations Patient Subjective Stated Complaint: pt had appendix removed on saturday and has NEVA drain on L side of abdomen, pt has blisters on the edge of the silk tape and states the area is itching. Triage Nursing Assessment: pt ambulatory to bed by self from wheelchair, pt alert and oriented x3, pt had her appendix removed on saturday and has neva drain on L side of abdomen, pt has blisters noted to the edge of the silk tape and pt complaining on their area being itching, no drainage noted around neva site or incision sites, dressings clean, dry and intact, pt afebrile Physician History: irritation form skin tape after surgery has skin blisters but wound looks very good and no other reported problems FHT 180 abd nontender following with OB and is SP appe recently doing well. family is here as independent Hx source. discussed risks/benefit for prescription topiclal ab with pt and family and they wish to proceed do this is ordered. no wheezes pharynx clear without swelling and swallowing ok no other rash or urticaria. Timing/Duration: today Severity: mild Location: torso Possible Causes: other ( tape reaction ) Associated Symptoms: blisters Allergies/Adverse Reactions: nickel Allergy (Mild, Verified 10/20/23 19:40) Rash Home Medications: Pnv No.133/Ferrous Fum/Folic [Sv Vitamins Tablet] 1 tab PO DAILY 10/18/23 [History] Hx Tetanus, Diphtheria Vaccination/Date Given: Yes Hx Influenza Vaccination/Date Given: No Hx Pneumococcal Vaccination/Date Given: No Immunizations Up to Date: No Travel Risk - International Travel Have you traveled outside of the country in past 3 weeks: No - Emerging Infectious Disease Are you exhibiting symptoms associated with any current EIDs: No Symptoms: Abdominal Pain, Vomitting - Review of Systems Constitutional: No Fever, No Chills Eyes: No Symptoms Ears, Nose, & Throat: No Symptoms Respiratory: No Cough, No Dyspnea Cardiac: No Chest Pain, No Edema, No Syncope Abdominal/Gastrointestinal: No Abdominal Pain, No Nausea, No Vomiting, No Diarrhea Genitourinary Symptoms: No Dysuria Musculoskeletal: No Back Pain, No Neck Pain Skin: Other (tape reaction on abd ), No Rash Neurological: No Dizziness, No Focal Weakness, No Sensory Changes Psychological: No Symptoms Endocrine: No Symptoms Hematologic/Lymphatic: No Symptoms Immunological/Allergic: No Symptoms All Other Systems: Reviewed and Negative - Past Medical History Pertinent Past Medical History: Yes Neurological History: Other ENT History: No Pertinent History Cardiac History: No Pertinent History Respiratory History: No Pertinent History Endocrine Medical History: No Pertinent History Musculoskeletal History: No Pertinent History GI Medical History: Gallbladder Disease History: No Pertinent History Psycho-Social History: No Pertinent History Female Reproductive Disorders: No Pertinent History Other Medical History: febrile seizures as a young child, gallbladder removed 2018 - Past Surgical History Past Surgical History: Yes Neuro Surgical History: No Pertinent History Cardiac: No Pertinent History Respiratory: No Pertinent History Gastrointestinal: Appendectomy, Cholecystectomy Genitourinary: No Pertinent History Musculoskeletal: No Pertinent History Female Surgical History: No Pertinent History Other Surgical History: tubes in ears when little - Female History Hx Last Menstrual Period: june 10, 2023 Hx Now: Yes Gestational Age: 12 weeks - Social History Smoking Status: Current some day smoker How long have you smoked: vapes Exposure to second hand smoke: Yes Drug Use: none Patient Lives Alone: No - Nursing Vital Signs Nursing Vital Signs: Initial Vital Signs Temperature 97.9 F 10/20/23 19:47 Pulse Rate 86 10/20/23 19:47 Respiratory Rate 18 10/20/23 19:47 Blood Pressure 124/98 10/20/23 19:47 O2 Sat by Pulse Oximetry 94 L 10/20/23 19:47 Pain Scale Pain Intensity 4 - Physical Exam General Appearance: no apparent distress, alert Eye Exam: PERRL/EOMI, eyes nml inspection Ears, Nose, Throat Exam: normal ENT inspection, pharynx normal, moist mucous membranes Neck Exam: normal inspection, non-tender, supple, full range of motion Respiratory Exam: normal breath sounds, lungs clear, No respiratory distress Cardiovascular Exam: regular rate/rhythm, normal heart sounds Gastrointestinal/Abdomen Exam: soft, mass, No tenderness Pelvic Exam: deferred Rectal Exam: deferred Back Exam: normal inspection, normal range of motion, No CVA tenderness, No vertebral tenderness Extremity Exam: normal inspection, normal range of motion Neurologic Exam: alert, oriented x 3, cooperative, normal mood/affect, sensation nml, No motor deficits Skin Exam: normal color, warm, dry, other (skin reaction blisters here tape was ) SpO2 Interpretation: normal SpO2: 98 O2 Delivery: Room Air - Course Nursing assessment & vital signs reviewed: Yes Ordered Tests: Medication Summary Discontinued Medications Generic Name Dose Route Start Last Admin Trade Name [place] PRN Reason Stop Dose Admin Bacitracin Zinc 0.9 each 10/20/23 20:21 Bacitracin Packet 1 Each Pckt TP 10/20/23 20:22 STAT ONE - Progress Progress: improved, re-examined Counseled pt/family regarding: diagnosis, need for follow-up Medical Desision Making - Independent Historian Additional History obtained from: Family - Discussion of managment Reviewed:: Test results, Need for additional workup Agreed on:: Treatment plan, need for follow-up - Diagnostic Testing Diagnostic test were ordered, analyzed, and reviewed by me: No - Risk of complications The pt has a mod risk of morbidity or mortality based on: Need for prescription drug management - Departure Departure Disposition: Home Clinical Impression: skin tape local reaction Condition: Good Critical Care Time: No Referrals: JUNE STOUT MD [Primary Care Provider] - Follow up/PCP as directed Instructions: Contact Dermatitis (DC) Additional Instructions: dont put any more tape on the blister area. use the antibiotic ointment daily until healed. followup with your drs this week as planned. return meantime if not improving or any other concerns. Prescriptions: Mupirocin [Bactroban OINTMENT] 22 gm TP BID #1 cartridge
[2023-10-20] MEDS: BACIGUENT PACKET TP ONE (20:22)
[2023-10-20] MEDS ORDERED: BACIGUENT PACKET ONE (20:29)
[2023-10-20 20:40] VITALS: BP 132/76
== END 2023-10-20 21:00 | disposition home or self-care (01) ==
LOC: ED 18:54
DX: L23.1 Allergic contact dermatitis due to adhesives (principal); Z33.1 Pregnant state, incidental; Z72.0 Tobacco use
CPT/HCPCS: 99283; A9270-GY

== ENCOUNTER 2024-02-12 09:59 | Emergency (ER) | payer OTHER ==
[2024-02-12 10:22] VITALS: TEMP 97.3; O2SAT 97
[2024-02-12] MEDS ORDERED: Zofran 4 MG/2 ML VIAL ONE (10:36)
--- NOTE | 2024-02-12 10:36 | ERPHSYRPT ---
- History of Present Illness Time Seen by Provider: 02/12/24 10:04 Source: patient Exam Limitations: no limitations Patient Subjective Stated Complaint: pt states that she is 27 weeks and stated that she could not feel the baby move. pt states she has vomited the whole and vomited more last night. Triage Nursing Assessment: pt ambulated into the er; pt is axo x4; pt states 4/10 to epigastric region; abd soft, round, non tender; heart tones 151- 155; c/o N/V; denies diarrhea; skin PDW; no respiratory distress present; vitals wnl Physician History: 23-year-old 4 para 3 at 27 weeks gestation presented in the ER with complains of worsening vomiting since last night and decreased movements. Patient reports she has been vomiting throughout the 4-6 times a day. She has already vomited 4 times today, nonprojectile, nonbilious but did notice some tinge of blood earlier today. She does do dry heaving. Patient reports minimal upper abdominal discomfort but reports having no movements since morning. Patient reports on arrival in the ER she started to have some movements. heart tone and 130s and 150s. Denies any vaginal bleeding or discharge. Minimal cramping at times. Allergies/Adverse Reactions: nickel Allergy (Mild, Verified 02/12/24 10:10) Rash Home Medications: Pnv No.133/Ferrous Fum/Folic [Sv Vitamins Tablet] 1 tab PO DAILY 10/18/23 [History] Cariprazine HCl [Vraylar] 1.5 mg PO DAILY 02/12/24 [History] Hx Tetanus, Diphtheria Vaccination/Date Given: No (unknown) Hx Influenza Vaccination/Date Given: No Hx Pneumococcal Vaccination/Date Given: No Travel Risk - International Travel Have you traveled outside of the country in past 3 weeks: No - Emerging Infectious Disease Are you exhibiting symptoms associated with any current EIDs: Yes Symptoms: Vomitting - Review of Systems Constitutional: No Symptoms Eyes: No Symptoms Ears, Nose, & Throat: No Symptoms Respiratory: No Symptoms Cardiac: No Symptoms Abdominal/Gastrointestinal: Abdominal Pain, Nausea, Vomiting Genitourinary Symptoms: Musculoskeletal: No Symptoms Skin: No Symptoms Neurological: No Symptoms Hematologic/Lymphatic: No Symptoms Immunological/Allergic: No Symptoms - Past Medical History Pertinent Past Medical History: Yes Neurological History: Other ENT History: No Pertinent History Cardiac History: No Pertinent History Respiratory History: No Pertinent History Endocrine Medical History: No Pertinent History Musculoskeletal History: No Pertinent History GI Medical History: Gallbladder Disease History: No Pertinent History Psycho-Social History: No Pertinent History Female Reproductive Disorders: No Pertinent History Other Medical History: febrile seizures as a young child, gallbladder removed 2018 - Past Surgical History Past Surgical History: Yes Neuro Surgical History: No Pertinent History Cardiac: No Pertinent History Respiratory: No Pertinent History Gastrointestinal: Appendectomy, Cholecystectomy Genitourinary: No Pertinent History Musculoskeletal: No Pertinent History Female Surgical History: No Pertinent History Other Surgical History: tubes in ears when little - Female History Hx Now: Yes Gestational Age: 27 weeks - Social History Smoking Status: Smoker, status unknown How long have you smoked: vapes Exposure to second hand smoke: Yes (vape) Drug Use: none Patient Lives Alone: No - Social Determinants of Health Will the patient participate in the screening: Yes Do you worry about a steady place to live?: No Do you have any problems with any of the following?: No known problems In the past 12 months,have you had to go without utilities?: No Transportation Issues: No Has anyone in your support network made you feel unsafe?: No Have you or anyone in your house had to go without enough: No - Nursing Vital Signs Nursing Vital Signs: Initial Vital Signs Temperature 97.3 F 02/12/24 10:11 Pulse Rate 78 02/12/24 10:11 Respiratory Rate 18 02/12/24 10:11 Blood Pressure 124/45 02/12/24 10:11 O2 Sat by Pulse Oximetry 97 02/12/24 10:11 Pain Scale Pain Intensity 4 - Physical Exam General Appearance: no apparent distress, alert Eye Exam: PERRL/EOMI Ears, Nose, Throat Exam: normal ENT inspection Neck Exam: normal inspection, full range of motion Respiratory Exam: normal breath sounds, lungs clear Cardiovascular Exam: regular rate/rhythm, normal heart sounds Gastrointestinal/Abdomen Exam: soft, normal bowel sounds, No tenderness, No distention Back Exam: normal inspection, normal range of motion Extremity Exam: normal inspection, normal range of motion Neurologic Exam: alert, oriented x 3, cooperative Skin Exam: normal color SpO2 Interpretation: normal SpO2: 97 O2 Delivery: Room Air Ordered Tests: Active Orders 24 hr Category Date Time Status IV Insertion STAT Care 02/12/24 10:30 Active OB FOLLOW UP PER FETUS [US] Stat Exams 02/12/24 11:13 Taken CBC W DIFF Stat Lab 02/12/24 10:35 Completed CMP Stat Lab 02/12/24 10:35 Completed LIPASE Stat Lab 02/12/24 10:35 Completed MAG [MAGNESIUM] Stat Lab 02/12/24 10:35 Completed UA W/RFX UR CULTURE Stat Lab 02/12/24 10:35 Completed Medication Summary Discontinued Medications Generic Name Dose Route Start Last Admin Trade Name [place] PRN Reason Stop Dose Admin Acetaminophen 975 mg 02/12/24 10:30 02/12/24 10:39 Acetaminophen 325 Mg Tablet PO 02/12/24 10:31 975 mg STAT ONE Administration Acetaminophen Confirm 02/12/24 10:37 Acetaminophen 325 Mg Tablet Administered 02/12/24 10:38 Dose 975 mg .ROUTE .STK-MED ONE Famotidine 20 mg 02/12/24 10:32 02/12/24 10:39 Famotidine 20 Mg/1 Vial IV 02/12/24 10:33 20 mg STAT ONE Administration Famotidine Confirm 02/12/24 10:37 Famotidine 20 Mg/1 Vial Administered 02/12/24 10:38 Dose 20 mg IV .STK-MED ONE Sodium Chloride 1,000 mls @ 999 mls/hr 02/12/24 10:30 02/12/24 10:40 Sodium Chloride 0.9% 1000 Ml IV 02/12/24 11:30 999 mls/hr .Q1H1M STA Administration Sodium Chloride Confirm 02/12/24 10:37 Sodium Chloride 0.9% 1000 Ml Administered 02/12/24 10:38 Dose 1,000 mls @ ud .ROUTE .STK-MED ONE Ceftriaxone Sodium 2 gm in 100 mls @ 200 mls/hr 02/12/24 11:09 02/12/24 11:12 Rocephin 2 Gm/100 Ml Nacl IV 02/12/24 11:38 200 mls/hr STAT ONE 200 mls/hr Administration Ceftriaxone Sodium Confirm 02/12/24 11:11 Rocephin 2 Gm/100 Ml Nacl Administered 02/12/24 11:12 Dose 2 gm in 100 mls @ ud IV .STK-MED ONE Ondansetron HCl 4 mg 02/12/24 10:30 02/12/24 10:39 Ondansetron Hcl 4 Mg/2 Ml Vial IV 02/12/24 10:31 4 mg STAT ONE Administration Ondansetron HCl Confirm 02/12/24 10:36 Ondansetron Hcl 4 Mg/2 Ml Vial Administered 02/12/24 10:37 Dose 4 mg .ROUTE .[facility]-MED ONE Lab/Rad Data: Laboratory Result Diagrams 02/12/24 10:35 02/12/24 10:35 Laboratory Results 02/12/24 02/12/24 02/12/24 Range/Units 10:35 10:35 10:35 WBC (3.98-10.04) x10^3/uL RBC (3.93-5.22) x10^6/uL Hgb (11.2-15.7) g/dL Hct (34.1-44.9) % MCV (79.4-94.8) fL MCH (25.6-32.2) pg MCHC (32.2-35.5) g/dL RDW (11.7-14.4) % Plt Count (182-369) x10^3/uL MPV (9.4-12.3) fL Gran % (34.0-71.1) % Immature Gran % (Auto) (0.001-0.429) % Nucleat RBC Rel Count (0.00-0.2) % Eos # (Auto) (0.04-0.36) x10^3/uL Immature Gran # (Auto) (0.001-0.031) x10^3u/L Absolute Lymphs (auto) (1.18-3.74) x10^3/uL Absolute Monos (auto) (0.24-0.86) x10^3/uL Absolute Nucleated RBC (0.00-0.012) x10^3u/L Lymphocytes % (19.3-51.7) % Monocytes % (4.7-12.5) % Eosinophils % (0.7-5.8) % Basophils % (0.1-1.2) % Absolute Granulocytes (1.56-6.13) x10^3/uL Basophils # (0.01-0.08) x10^3/uL Sodium 137 (135-145) mmol/L Potassium 3.6 (3.5-5.1) mmol/L Chloride 105 (98-107) mmol/L Carbon Dioxide 24 (22-30) mmol/L Anion Gap 11.7 (5-15) MEQ/L BUN 6 L (7-17) mg/dL Creatinine 0.52 (0.52-1.04) mg/dL Estimated GFR 133.0 ML/MIN Glucose 94 (74-106) mg/dL Calcium 9.3 (8.4-10.2) mg/dL Magnesium 1.7 (1.6-2.3) mg/dL Total Bilirubin 0.20 (0.2-1.3) mg/dL AST 19 (14-36) U/L ALT 16 (0-35) U/L Alkaline Phosphatase 87 (38-126) U/L Serum Total Protein 6.8 (6.3-8.2) g/dL Albumin 3.5 (3.5-5.0) g/dL Lipase 27 (23-300) U/L Urine Color Yellow (Yellow) Urine Appearance Turbid A (Clear) Urine pH 7.0 (4.6-8.0) Ur Specific [place] 1.010 (1.005-1.030) Urine Protein Negative (Negative) Urine Glucose (UA) Negative (Negative) mg/dL Urine Ketones Negative (Negative) Urine Blood Negative (Negative) Urine Nitrite Negative (Negative) Urine Bilirubin Negative (Negative) Urine Urobilinogen 0.2 (0.2) mg/dL Ur Leukocyte Esterase Large A (Negative) U Hyaline Cast (Auto) NONE SEEN (0-2) /LPF Urine Microscopic RBC 0-2 (0-5) /HPF Urine Microscopic WBC 51-100 A (0-5) /HPF Ur Epithelial Cells Few (None Seen) /HPF Urine Bacteria Few A (None Seen) /HPF Urine Culture Reflexed NO (NO) 02/12/24 Range/Units 10:35 WBC 8.3 (3.98-10.04) x10^3/uL RBC 3.88 L (3.93-5.22) x10^6/uL Hgb 10.9 L (11.2-15.7) g/dL Hct 32.9 L (34.1-44.9) % MCV 84.8 (79.4-94.8) fL MCH 28.1 (25.6-32.2) pg MCHC 33.1 (32.2-35.5) g/dL RDW 12.4 (11.7-14.4) % Plt Count 204 (182-369) x10^3/uL MPV 10.4 (9.4-12.3) fL Gran % 80.0 H (34.0-71.1) % Immature Gran % (Auto) 0.5 H (0.001-0.429) % Nucleat RBC Rel Count 0.0 (0.00-0.2) % Eos # (Auto) 0.07 (0.04-0.36) x10^3/uL Immature Gran # (Auto) 0.04 H (0.001-0.031) x10^3u/L Absolute Lymphs (auto) 1.18 (1.18-3.74) x10^3/uL Absolute Monos (auto) 0.36 (0.24-0.86) x10^3/uL Absolute Nucleated RBC 0.00 (0.00-0.012) x10^3u/L Lymphocytes % 14.2 L (19.3-51.7) % Monocytes % 4.3 L (4.7-12.5) % Eosinophils % 0.8 (0.7-5.8) % Basophils % 0.2 (0.1-1.2) % Absolute Granulocytes 6.66 H (1.56-6.13) x10^3/uL Basophils # 0.02 (0.01-0.08) x10^3/uL Sodium (135-145) mmol/L Potassium (3.5-5.1) mmol/L Chloride (98-107) mmol/L Carbon Dioxide (22-30) mmol/L Anion Gap (5-15) MEQ/L BUN (7-17) mg/dL Creatinine (0.52-1.04) mg/dL Estimated GFR ML/MIN Glucose (74-106) mg/dL Calcium (8.4-10.2) mg/dL Magnesium (1.6-2.3) mg/dL Total Bilirubin (0.2-1.3) mg/dL AST (14-36) U/L ALT (0-35) U/L Alkaline Phosphatase (38-126) U/L Serum Total Protein (6.3-8.2) g/dL Albumin (3.5-5.0) g/dL Lipase (23-300) U/L Urine Color (Yellow) Urine Appearance (Clear) Urine pH (4.6-8.0) Ur Specific [place] (1.005-1.030) Urine Protein (Negative) Urine Glucose (UA) (Negative) mg/dL Urine Ketones (Negative) Urine Blood (Negative) Urine Nitrite (Negative) Urine Bilirubin (Negative) Urine Urobilinogen (0.2) mg/dL Ur Leukocyte Esterase (Negative) U Hyaline Cast (Auto) (0-2) /LPF Urine Microscopic RBC (0-5) /HPF Urine Microscopic WBC (0-5) /HPF Ur Epithelial Cells (None Seen) /HPF Urine Bacteria (None Seen) /HPF Urine Culture Reflexed (NO) - Progress Progress: improved Progress Note: 02/12/24 11:54 23-year-old 4 para 3 at 27 weeks gestation is evaluated in the ER for vomiting, mild cramping and decreased movements. Patient did started to have movements on presentation in the ER. heart tone in 130s to 150s. Patient is given fluids along with Zofran and Pepcid, on reevaluation she is feeling much better. I believe patient has GERD with some element of esophagitis. Workup showed normal white count, fairly unremarkable chemistries. She does have UTI and given a dose of Rocephin. I have discussed with Dr. Stout patient's OB, recommended OB limited ultrasound which showed DONTE 14.4, cervix closed and 4.6 cm and heart tone in 130s. No other acute abnormality per preliminary report, official report is pending. movements confirmed by information technology coordinator. I have shared the results of workup and ultrasound findings with Dr. Stout, recommended discharge and outpatient follow- up. I would continue with Keflex to go home along with Pepcid and Zofran. Recommended increase hydration, smoking cessation and outpatient follow-up. Discussed signs symptoms of worsening needing return to ER which she seems understanding. Stable for discharge. Discussed with : Martha Counseled pt/family regarding: lab results, diagnosis, need for follow-up, rad results, smoking cessation Medical Desision Making - Discussion of managment Care discussed with:: specialist (OB Dr. Stout) Reviewed:: Test results, Need for additional workup Agreed on:: Treatment plan, need for follow-up Will see patient: In office - Diagnostic Testing Diagnostic test were ordered, analyzed, and reviewed by me: Yes Radiological Interpretation: Reviewed by me, Teleradiologist Report - Risk of complications The pt has a mod risk of morbidity or mortality based on: Need for prescription drug management - Departure Departure Disposition: Home Clinical Impression: Urinary tract infection during , Nausea/vomiting in , GERD with esophagitis Condition: Stable Critical Care Time: No Referrals: JUNE STOUT MD [Primary Care Provider] - Follow up with PCP 1 day (Call for appointment for reevaluation) Instructions: Nausea and Vomiting, Adult ED, Urinary tract infections in Additional Instructions: Drink plenty of fluids to keep yourself well-hydrated. Follow-up with your primary OB for reevaluation. Return to ER for intractable vomiting, abdominal/pelvic pain, vaginal bleeding, discharge, decreased movements etc. Prescriptions: Cephalexin Mh 500 mg [Keflex 500 mg] 500 mg PO TID #21 cap Famotidine 20 mg [Pepcid 20 MG] 20 mg PO BID #60 tablet Ondansetron ODT 4 MG [Zofran Odt 4 mg] 1 ea PO QIDPRN PRN #20 tablet PRN Reason: n/v
[2024-02-12 10:37] LABS: Absolute Neutrophil Ct (ANC) 6.66 x10^3/uL (1.56-6.13); BASOPHIL % 0.2 % (0.1-1.2); Basophil (Absolute #) 0.02 x10^3/uL (0.01-0.08); Eosinophil % 0.8 % (0.7-5.8); Eosinophil (Absolute #) 0.07 x10^3/uL (0.04-0.36); Hematocrit 32.9 % (34.1-44.9); Hemoglobin 10.9 g/dL (11.2-15.7); IMMATURE GRAN # 0.04 x10^3u/L (0.001-0.031); IMMATURE GRAN % 0.5 % (0.001-0.429); Lymphocyte (Absolute #) 1.18 x10^3/uL (1.18-3.74); Lymphocytes % 14.2 % (19.3-51.7); Mean Cell Volume 84.8 fL (79.4-94.8); Mean Corpuscular Hemoglobin 28.1 pg (25.6-32.2); Mean Corpuscular Hgb Concent. 33.1 g/dL (32.2-35.5); Mean Platelet Volume 10.4 fL (9.4-12.3); Monocyte (Absolute #) 0.36 x10^3/uL (0.24-0.86); Monocytes % 4.3 % (4.7-12.5); Platelet Count 204 x10^3/uL (182-369); Red Blood Count 3.88 x10^6/uL (3.93-5.22); Red Cell Distribution Width 12.4 % (11.7-14.4); White Blood Count 8.3 x10^3/uL (3.98-10.04)
[2024-02-12] MEDS ORDERED: Pepcid 20 MG VIAL IV ONE (10:37)
[2024-02-12] MEDS ORDERED: TYLENOL 325 MG ONE (10:37)
[2024-02-12] MEDS ORDERED: Sodium Chloride 0.9% 1000 ML 1,000 ML ONE (10:37)
[2024-02-12] MEDS: Zofran 4 MG/2 ML VIAL IV ONE (10:39)
[2024-02-12] MEDS: TYLENOL 325 MG PO ONE (10:39)
[2024-02-12] MEDS: Pepcid 20 MG VIAL IV ONE (10:39)
[2024-02-12] MEDS: Sodium Chloride 0.9% 1000 ML 1,000 ML IV STA (10:40)
[2024-02-12 10:46] VITALS: PULSE 68
[2024-02-12 10:47] LABS: Appearance Turbid (Clear); Bacteria Few /HPF (None Seen); Bilirubin Negative (Negative); Blood Negative (Negative); Epithelial Cells Few /HPF (None Seen); Glucose, Urine Negative (Negative); Hyaline Casts NONE SEEN /LPF (0-2); Ketones Negative (Negative); Leukocyte Esterase Large (Negative); Nitrite Negative (Negative); Protein,Urine Dip Negative (Negative); RBC 0-2 /HPF (0-5); Urobilinogen 0.2 mg/dL (0.2); WBC 51-100 /HPF (0-5)
[2024-02-12 10:48] LABS: ADD URINE CULTURE? NO (NO)
[2024-02-12 10:50] LABS: ALBUMIN 3.5 g/dL (3.5-5.0); ANION GAP 11.7 MEQ/L (5-15); BILIRUBIN,TOTAL 0.2 mg/dL (0.2-1.3); Calcium 9.3 mg/dL (8.4-10.2); Creatinine 1 0.52 mg/dL (0.52-1.04); Potassium 3.6 mmol/L (3.5-5.1); Total Protein 6.8 g/dL (6.3-8.2)
[2024-02-12 10:51] LABS: MAGNESIUM 1.7 mg/dL (1.6-2.3)
[2024-02-12] MEDS ORDERED: ROCEPHIN 2 GM/100 ML NACL 2 GM/100 ML IVPB IV ONE (11:11)
[2024-02-12] MEDS: ROCEPHIN 2 GM/100 ML NACL 2 GM/100 ML IVPB IV ONE (11:12)
[2024-02-12 12:11] VITALS: BP 115/55; RESP 21
--- NOTE | 2024-02-12 12:23 | XRAY ---
CLINICAL HISTORY: decreased movements COMPARISON: 12/24/2023. TECHNIQUE: Multiple OB ultrasound images were obtained through the transabdominal approach in real-time and Duplex. FINDINGS: Single intrauterine fetus in Breech presentation. heart rates of 131 and 133 bpm. Normal movements are noted (video clips provided). parameters are not available. PLACENTA AND AMNIOTIC FLUID: The estimated amniotic fluid index is adequate measuring 14.45 cm with a DVP of 5.11 cm. The placenta is posterior. The cervix is closed measuring 4.62 cm. IMPRESSION: 1. A single live intrauterine in Breech presentation. 2. Normal movements are noted (video clips provided). 3. heart rates of 131-133 bpm. LMP- Unknown ELADIO by LMP: 05/08/2024 [place] by LMP- 27 weeks 5 days ELADIO by prior US: 05/13/2024 ELADIO by US: not available. Disclaimer: anomalies may be present but not detected. Chromosomal abnormalities can not be ruled out with certainty, even with the normal findings. Electronically Signed by: Makayla Germain MD. (02/12/2024 12:18:42 EDT)
== END 2024-02-12 12:21 | disposition home or self-care (01) ==
LOC: ED 09:59
DX: O21.8 Other vomiting complicating pregnancy (principal); Z3A.27 27 weeks gestation of pregnancy; F17.200 Nicotine dependence, unspecified, uncomplicated; K21.9 Gastro-esophageal reflux disease without esophagitis; N39.0 Urinary tract infection, site not specified
CPT/HCPCS: 36000; 36415; 76816; 80053; 81001; 83690; 83735; 85025; 96365; 96374; 96375; 99284; J0696; J2405; A9270-GY

== ENCOUNTER 2024-03-19 18:20 | Observation (INO) | payer OTHER ==
[2024-03-19 19:50] LABS: Absolute Neutrophil Ct (ANC) 5.49 x10^3/uL (1.56-6.13); BASOPHIL % 0.1 % (0.1-1.2); Basophil (Absolute #) 0.01 x10^3/uL (0.01-0.08); Eosinophil % 0.9 % (0.7-5.8); Eosinophil (Absolute #) 0.07 x10^3/uL (0.04-0.36); Hematocrit 29.8 % (34.1-44.9); Hemoglobin 9.8 g/dL (11.2-15.7); IMMATURE GRAN # 0.03 x10^3u/L (0.001-0.031); IMMATURE GRAN % 0.4 % (0.001-0.429); Lymphocyte (Absolute #) 1.21 x10^3/uL (1.18-3.74); Lymphocytes % 16.4 % (19.3-51.7); Mean Cell Volume 83.7 fL (79.4-94.8); Mean Corpuscular Hemoglobin 27.5 pg (25.6-32.2); Mean Corpuscular Hgb Concent. 32.9 g/dL (32.2-35.5); Mean Platelet Volume 10.4 fL (9.4-12.3); Monocyte (Absolute #) 0.58 x10^3/uL (0.24-0.86); Monocytes % 7.8 % (4.7-12.5); Neutrophil % 74.4 % (34.0-71.1); Platelet Count 197 x10^3/uL (182-369); Red Blood Count 3.56 x10^6/uL (3.93-5.22); Red Cell Distribution Width 12.5 % (11.7-14.4); White Blood Count 7.4 x10^3/uL (3.98-10.04)
[2024-03-19 20:03] LABS: ALBUMIN 3.2 g/dL (3.5-5.0); ANION GAP 11.8 MEQ/L (5-15); BILIRUBIN,TOTAL 0.3 mg/dL (0.2-1.3); Creatinine 1 0.66 mg/dL (0.52-1.04); EST GLOMERULAR FILTRATION RATE 125.6 ML/MIN; Total Protein 6.5 g/dL (6.3-8.2)
[2024-03-19 20:08] LABS: Potassium 2.9 mmol/L (3.5-5.1)
[2024-03-19 20:17] VITALS: BP 121/59; PULSE 66; RESP 18; TEMP 98.4; O2SAT 98
[2024-03-19] MEDS ORDERED: Lactated Ringers 1,000 ML IV ONE (20:42)
[2024-03-19] MEDS ORDERED: K-LYTE ONE (20:45)
[2024-03-19] MEDS: K-LYTE PO ONE (20:57)
[2024-03-19] MEDS: Lactated Ringers 1,000 ML IV ONE (20:57)
--- NOTE | 2024-03-20 07:34 | XRAY ---
Indication: Status post fall. Low heart rate. Ultrasound biophysical profile study performed. Comparison: None Single intrauterine with heart rate 119 BPM. Four-quadrant DONTE is 9.0 cm, largest pocket 3.6 cm. Cervical length is 6.4 cm. 2 points given for breathing, movements, tone, and amniotic fluid volume. Impression: Total biophysical profile score is 8 out of 8. Comment: Preliminary report was given.
== END 2024-03-19 23:48 | disposition home or self-care (01) ==
LOC: OB 18:20
PROVIDERS: ADMIT Family Medicine; ATTEND Family Medicine
DX: Z34.83 Encounter for supervision of other normal pregnancy, third trimester (principal); Z3A.32 32 weeks gestation of pregnancy
CPT/HCPCS: 36415; 76815; 76819; 80053; 83735; 85025; A9270-GY

== ENCOUNTER 2024-04-27 11:17 | Observation (INO) | payer OTHER ==
[2024-04-27 12:11] LABS: Hematocrit 30.3 % (34.1-44.9); Hemoglobin 9.7 g/dL (11.2-15.7); Mean Cell Volume 84.4 fL (79.4-94.8); Mean Platelet Volume 10.7 fL (9.4-12.3); Platelet Count 200 x10^3/uL (182-369); Red Blood Count 3.59 x10^6/uL (3.93-5.22); Red Cell Distribution Width 14.1 % (11.7-14.4); White Blood Count 7.7 x10^3/uL (3.98-10.04)
[2024-04-27 12:15] VITALS: RESP 18; TEMP 98.1
[2024-04-27 12:24] LABS: ALBUMIN 3.3 g/dL (3.5-5.0); ANION GAP 11.1 MEQ/L (5-15); BILIRUBIN,TOTAL 0.3 mg/dL (0.2-1.3); Calcium 8.9 mg/dL (8.4-10.2); Creatinine 1 0.45 mg/dL (0.52-1.04); EST GLOMERULAR FILTRATION RATE 137.7 ML/MIN; Potassium 3.4 mmol/L (3.5-5.1); Total Protein 6.8 g/dL (6.3-8.2)
[2024-04-27 12:39] VITALS: BP 120/62; PULSE 76; O2SAT 98
--- NOTE | 2024-04-27 20:22 | XRAY ---
Indication: Evaluate DONTE. Limited OB ultrasound demonstrates single intrauterine in cephalic presentation. heart rate 125 BPM. Four-quadrant DONTE is 5.8 cm, largest pocket 2.2 cm.
== END 2024-04-27 13:38 | disposition home or self-care (01) ==
LOC: OB 11:18
PROVIDERS: ADMIT Family Medicine; ATTEND Family Medicine
DX: Z34.83 Encounter for supervision of other normal pregnancy, third trimester (principal); Z3A.38 38 weeks gestation of pregnancy
CPT/HCPCS: 36415; 76815; 80053; 85027

== ENCOUNTER 2024-04-29 07:58 | Inpatient (IN) | payer OTHER ==
[2024-04-29] MEDS ORDERED: Nubain 10 MG/ML IV PRN (17:00)
[2024-04-29] MEDS ORDERED: STADOL 2 MG IV PRN (17:00)
[2024-04-29 18:08] LABS: Absolute Neutrophil Ct (ANC) 4.34 x10^3/uL (1.56-6.13); BASOPHIL % 0.3 % (0.1-1.2); Basophil (Absolute #) 0.02 x10^3/uL (0.01-0.08); Eosinophil % 1.1 % (0.7-5.8); Eosinophil (Absolute #) 0.07 x10^3/uL (0.04-0.36); Hematocrit 29.4 % (34.1-44.9); Hemoglobin 9.5 g/dL (11.2-15.7); IMMATURE GRAN # 0.03 x10^3u/L (0.001-0.031); IMMATURE GRAN % 0.5 % (0.001-0.429); Lymphocyte (Absolute #) 1.49 x10^3/uL (1.18-3.74); Lymphocytes % 23.2 % (19.3-51.7); Mean Cell Volume 83.8 fL (79.4-94.8); Mean Corpuscular Hemoglobin 27.1 pg (25.6-32.2); Mean Corpuscular Hgb Concent. 32.3 g/dL (32.2-35.5); Mean Platelet Volume 11.2 fL (9.4-12.3); Monocyte (Absolute #) 0.48 x10^3/uL (0.24-0.86); Monocytes % 7.5 % (4.7-12.5); Neutrophil % 67.4 % (34.0-71.1); Platelet Count 233 x10^3/uL (182-369); Red Blood Count 3.51 x10^6/uL (3.93-5.22); Red Cell Distribution Width 14.2 % (11.7-14.4); White Blood Count 6.4 x10^3/uL (3.98-10.04)
[2024-04-29] MEDS: CYTOTEC PO SCH (18:21)
[2024-04-29 18:55] LABS: ABO TYPING A; Antibody Screen NEGATIVE (NEGATIVE); RH TYPING NEGATIVE
[2024-04-29 19:21] LABS: Appearance Cloudy (Clear); Bilirubin Negative (Negative); Blood Negative (Negative); Glucose, Urine Negative (Negative); Ketones Trace (Negative); Leukocyte Esterase Small (Negative); Nitrite Negative (Negative); Ph 5.5 (4.6-8.0); Protein,Urine Dip Negative (Negative); Specific Gravity 1.025 (1.005-1.030)
[2024-04-29 19:32] LABS: RBC 0-2 /HPF (0-5)
[2024-04-29 19:36] LABS: Amphetamine,Urine NEGATIVE (NEGATIVE); Barbiturate,Urine NEGATIVE (NEGATIVE); Benzodiazepine,Urine NEGATIVE (NEGATIVE); Cocaine,Urine NEGATIVE (NEGATIVE); Methadone,Urine NEGATIVE (NEGATIVE); Opiate,Urine NEGATIVE (NEGATIVE); PCP,Urine NEGATIVE (NEGATIVE); THC,Urine POSITIVE (NEGATIVE)
[2024-04-29 19:47] LABS: Bacteria Rare /HPF (None Seen); Epithelial Cells Few /HPF (None Seen); Hyaline Casts 0-2 /LPF (0-2)
[2024-04-30] MEDS ORDERED: FENTANYL 2 MCG-BUPIV 0.125%-NS 250 ML Epidur 250 ML EPIDURAL ONE (06:45)
[2024-04-30] MEDS: Lactated Ringers 1,000 ML IV SCH (06:51)
[2024-04-30] MEDS: PITOCIN 30 UNITS/ LR 500 ML 30 UNITS/500 ML PLAST..BAG IV SCH (06:52)
[2024-04-30] MEDS: FENTANYL 2 MCG-BUPIV 0.125%-NS 250 ML Epidur 250 ML EPIDURAL SCH (06:55)
[2024-04-30] MEDS ORDERED: SUBLIMAZE 100 MCG/2 ML ONE (08:04)
[2024-04-30] MEDS ORDERED: XYLOCAINE 2%/Epi 1:200000 20ML VIAL MPF ONE (08:05)
[2024-04-30] MEDS: Zofran 4 MG/2 ML VIAL IV PRN (08:40)
[2024-04-30] MEDS: TUCKS TP PRN (14:06)
[2024-04-30] MEDS: Dermoplast Spray TP PRN (14:06)
[2024-04-30] MEDS ORDERED: XYLOCAINE 1% HCL 20 ML MDV IJ PRN (15:00)
[2024-04-30] MEDS ORDERED: PITOCIN 30 UNITS/ LR 500 ML 30 UNITS/500 ML PLAST..BAG IV SCH (15:00)
[2024-04-30] MEDS: MOTRIN 400 MG PO PRN (15:15)
[2024-04-30] MEDS: Docusate Sodium 100 MG PO SCH (23:03)
[2024-05-01 04:45] LABS: Absolute Neutrophil Ct (ANC) 5.06 x10^3/uL (1.56-6.13); BASOPHIL % 0.3 % (0.1-1.2); Basophil (Absolute #) 0.02 x10^3/uL (0.01-0.08); Eosinophil % 1.6 % (0.7-5.8); Eosinophil (Absolute #) 0.11 x10^3/uL (0.04-0.36); Hematocrit 28.5 % (34.1-44.9); Hemoglobin 9.2 g/dL (11.2-15.7); IMMATURE GRAN # 0.03 x10^3u/L (0.001-0.031); IMMATURE GRAN % 0.4 % (0.001-0.429); Lymphocyte (Absolute #) 1.32 x10^3/uL (1.18-3.74); Lymphocytes % 18.7 % (19.3-51.7); Mean Cell Volume 84.3 fL (79.4-94.8); Mean Corpuscular Hemoglobin 27.2 pg (25.6-32.2); Mean Corpuscular Hgb Concent. 32.3 g/dL (32.2-35.5); Mean Platelet Volume 11.2 fL (9.4-12.3); Monocyte (Absolute #) 0.51 x10^3/uL (0.24-0.86); Monocytes % 7.2 % (4.7-12.5); Neutrophil % 71.8 % (34.0-71.1); Platelet Count 169 x10^3/uL (182-369); Red Blood Count 3.38 x10^6/uL (3.93-5.22); Red Cell Distribution Width 14.3 % (11.7-14.4); White Blood Count 7.1 x10^3/uL (3.98-10.04)
[2024-05-01 08:09] LABS: RPR Non Reactive (Non Reactive)
[2024-05-01] MEDS: FERREX 150 PO SCH (10:01)
[2024-05-01] MEDS: Adacel Vial IM ONE (10:02)
[2024-05-01] MEDS: TYLENOL EXTRA STRENGTH 500 MG PO PRN (18:49)
--- NOTE | 2024-05-02 11:39 | PCM.DS ---
Discharge Summary Date of Admission: 04/30/24 07:58 Admitting Physician: JUNE STOUT Consults: Consults on Case 04/30/24 16:08 Navigation ONCE Primary Care Provider: JUNE STOUT Allergies Allergies nickel Allergy (Mild, Verified 02/12/24 10:10) Rash Hospital Summary - Hospital Course Hospital Course: patient had a term vaginal delivery induction. no problems or concerns , mild lochia, minimal pain. brianna po and no problems or concerns - Vitals & Intake/Output Vital Signs: Vital Signs Temperature 97.8 F 05/02/24 08:00 Pulse Rate 61 05/02/24 08:00 Respiratory Rate 16 05/02/24 08:00 Blood Pressure 122/55 05/02/24 08:00 O2 Sat by Pulse Oximetry 98 05/02/24 08:00 Intake & Output: Intake & Output 04/29/24 04/30/24 05/01/24 05/02/24 11:59 11:59 11:59 11:59 Intake Total 1700 420 Output Total 2700 Balance -1000 420 Weight 113.398 kg - Lab Result Diagrams: 05/01/24 04:40 Micro Results-Entire Visit: Microbiology 04/29/24 17:00 Urine Culture - Final Clean Catch Midstream MIXED FINN; 3 OR MORE TYPES. NO PREDOMINANT ORGANISM. NO FURTHER WORKUP. PLEASE RESUBMIT IF CLINICALLY INDICATED. Discharge Exam General Appearance: no apparent distress Neurologic Exam: alert, oriented x 3 Respiratory Exam: normal breath sounds, lungs clear, No respiratory distress Cardiovascular Exam: regular rate/rhythm, normal heart sounds Gastrointestinal/Abdomen Exam: soft, No tenderness, No mass Skin Exam: normal color, warm, dry Final Diagnosis/Problem List - Final Discharge Diagnosis/Problem (1) Vaginal delivery Current Visit: No Status: Acute Code(s): O80 - ENCOUNTER FOR FULL-TERM UNCOMPLICATED DELIVERY - Discharge Disposition: Home, Self-Care Condition: Stable Prescriptions: Continue Pnv No.133/Ferrous Fum/Folic [Sv Vitamins Tablet] 1 tab PO DAILY Cariprazine HCl [Vraylar] 1.5 mg PO DAILY buPROPion HCL [Bupropion Xl] 300 mg PO DAILY Follow up with: JUNE STOUT MD [Primary Care Provider] -
[2024-05-02 14:20] LABS: Absolute Neutrophil Ct (ANC) 4.51 x10^3/uL (1.56-6.13); BASOPHIL % 0.5 % (0.1-1.2); Basophil (Absolute #) 0.03 x10^3/uL (0.01-0.08); Eosinophil % 4.2 % (0.7-5.8); Eosinophil (Absolute #) 0.28 x10^3/uL (0.04-0.36); Hematocrit 33.8 % (34.1-44.9); Hemoglobin 10.7 g/dL (11.2-15.7); IMMATURE GRAN # 0.04 x10^3u/L (0.001-0.031); IMMATURE GRAN % 0.6 % (0.001-0.429); Lymphocyte (Absolute #) 1.45 x10^3/uL (1.18-3.74); Lymphocytes % 21.8 % (19.3-51.7); Mean Cell Volume 85.8 fL (79.4-94.8); Mean Corpuscular Hemoglobin 27.2 pg (25.6-32.2); Mean Corpuscular Hgb Concent. 31.7 g/dL (32.2-35.5); Mean Platelet Volume 10.5 fL (9.4-12.3); Monocyte (Absolute #) 0.34 x10^3/uL (0.24-0.86); Monocytes % 5.1 % (4.7-12.5); Neutrophil % 67.8 % (34.0-71.1); Platelet Count 213 x10^3/uL (182-369); Red Blood Count 3.94 x10^6/uL (3.93-5.22); Red Cell Distribution Width 14.2 % (11.7-14.4); White Blood Count 6.7 x10^3/uL (3.98-10.04)
[2024-05-02 14:55] VITALS: PULSE 77
[2024-05-02 21:46] VITALS: BP 142/64; RESP 20; TEMP 98.3; O2SAT 98
== END 2024-05-02 20:45 | disposition home or self-care (01) | DRG 807 ==
LOC: OB 07:58 → OBSVTOIN 04-30 07:58
PROVIDERS: ADMIT Family Medicine; ATTEND Family Medicine
PROC: 10E0XZZ Delivery of Products of Conception, External Approach (ICD-10-PCS; principal; 2024-04-30)
DX: O80 Encounter for full-term uncomplicated delivery (principal); Z37.0 Single live birth; Z3A.38 38 weeks gestation of pregnancy
CPT/HCPCS: 36415; 76815; 80053; 80307; 81001; 81003; 82570; 84156; 85025; 85027; 86592; 86850; 86900; 86901; 87086; 90715; G0378; G0379; J2405; J2590; J3010; A9270-GY

== ENCOUNTER 2025-02-15 22:28 | Emergency (ER) | payer OTHER ==
[2025-02-15 22:40] VITALS: TEMP 96.6
[2025-02-16 00:06] VITALS: O2SAT 98
[2025-02-16] MEDS ORDERED: TORAdol 30 mg Injection ONE (00:13)
[2025-02-16] MEDS: TORAdol 30 mg Injection IM ONE (00:14)
[2025-02-16] MEDS ORDERED: TYLENOL 325 MG ONE (00:14)
[2025-02-16] MEDS: TYLENOL 325 MG PO ONE (00:15)
--- NOTE | 2025-02-16 00:34 | ERPHSYRPT ---
- History of Present Illness Time Seen by Provider: 02/16/25 00:32 Source: patient Exam Limitations: no limitations Patient Subjective Stated Complaint: pt reports she tripped yesterday falling onto the ground and landing on her right elbow. reports her pain is increased w ith movement. pt denies LOC. Triage Nursing Assessment: pt is aox3, pupils perrl, afebrile, resps easy and non labored, cap refill < 3 seconds, radial pulses strong and equal, pt skin pink warm dry. pt guarding R elbow, slight swelling noted, pt ROM limited d/t pain. sensation intact. Physician History: Patient is a 24-year-old female no significant past medical history presents to our ED for evaluation of right elbow pain. Patient states he tripped and fell yesterday. Patient landed onto her right elbow. Patient landed on grass. Patient states she experiences pain with active and passive range of motion. No other injuries reported. No BHT or LOC. No neck pain. Cervical spine cleared clinically. Patient otherwise feels well. She voices no other complaints or concerns at this time. Portions of this note were created with voice recognition technology. There may be grammatical, spelling, punctuation or sound alike errors Occurred: yesterday Method of Injury: fell Quality: constant Severity of Pain-Max: moderate Severity of Pain-Current: mild Extremities Pain Location: elbow: right Modifying Factors: Improves With: movement Associated Symptoms: none Allergies/Adverse Reactions: nickel Allergy (Mild, Verified 02/15/25 22:40) Rash Home Medications: Cariprazine HCl [Vraylar] 1.5 mg PO DAILY 02/12/24 [History] buPROPion HCL [Bupropion Xl] 300 mg PO DAILY 04/27/24 [History] Hx Tetanus, Diphtheria Vaccination/Date Given: Yes Hx Influenza Vaccination/Date Given: No Hx Pneumococcal Vaccination/Date Given: No Immunizations Up to Date: Yes Travel Risk - International Travel Have you traveled outside of the country in past 3 weeks: No - Emerging Infectious Disease Are you exhibiting symptoms associated with any current EIDs: No Symptoms: Vomitting - Review of Systems All Other Systems: Reviewed and Negative - Past Medical History Pertinent Past Medical History: Yes Neurological History: Other ENT History: No Pertinent History Cardiac History: No Pertinent History Respiratory History: No Pertinent History Endocrine Medical History: No Pertinent History Musculoskeletal History: No Pertinent History GI Medical History: Gallbladder Disease History: No Pertinent History Psycho-Social History: No Pertinent History Female Reproductive Disorders: No Pertinent History Other Medical History: febrile seizures as a young child, gallbladder removed 2018 - Past Surgical History Past Surgical History: Yes Neuro Surgical History: No Pertinent History Cardiac: No Pertinent History Respiratory: No Pertinent History Gastrointestinal: Appendectomy, Cholecystectomy Genitourinary: No Pertinent History Musculoskeletal: No Pertinent History Female Surgical History: No Pertinent History Other Surgical History: tubes in ears when little - Female History Hx Last Menstrual Period: 01/18/25 Hx Now: No - Social History Smoking Status: Never smoker Exposure to second hand smoke: No Drug Use: none - Social Determinants of Health Will the patient participate in the screening: Yes Do you worry about a steady place to live?: No Do you have any problems with any of the following?: No known problems In the past 12 months,have you had to go without utilities?: No Transportation Issues: No Has anyone in your support network made you feel unsafe?: No Have you or anyone in your house had to go w/o enough food: No - Nursing Vital Signs Nursing Vital Signs: Initial Vital Signs Temperature 96.6 F 02/15/25 22:31 Pulse Rate 82 02/15/25 22:31 Respiratory Rate 18 02/15/25 22:31 Blood Pressure 121/67 02/15/25 22:31 O2 Sat by Pulse Oximetry 99 02/15/25 22:31 Pain Scale Pain Intensity 5 - Physical Exam General Appearance: alert Neck Exam: supple Cardiovascular/Respiratory Exam: chest non-tender, normal breath sounds, no respiratory distress Abdominal Exam: non-tender, No guarding Back Exam: normal inspection, No vertebral tenderness Elbow/Forearm Exam: limited ROM, soft tissue tenderness Wrist Exam: normal inspection, non-tender, no evidence of injury, normal ROM Hand Exam: normal inspection, non-tender, no evidence of injury, normal ROM Neuro/Tendon Exam: normal sensation, normal motor functions, normal tendon functions Mental Status Exam: alert, oriented x 3, cooperative Skin Exam: normal color, warm, dry SpO2 Interpretation: normal SpO2: 98 O2 Delivery: Room Air - Course Nursing assessment & vital signs reviewed: Yes - Radiology Exams Elbow X-ray Interpretation: Interpreted by me (Fracture dislocation (preliminary read)) Ordered Tests: Active Orders 24 hr Category Date Time Status Sling Application STAT Care 02/16/25 00:33 Active ELBOW (MINIMUM 3 VIEWS) Stat Exams 02/15/25 22:51 Taken Medication Summary Discontinued Medications Generic Name Dose Route Start Last Admin Trade Name [place] PRN Reason Stop Dose Admin Acetaminophen 975 mg 02/16/25 00:12 02/16/25 00:15 Acetaminophen 325 Mg Tablet PO 02/16/25 00:13 975 mg STAT ONE Administration Acetaminophen Confirm 02/16/25 00:14 Acetaminophen 325 Mg Tablet Administered 02/16/25 00:15 Dose 975 mg .ROUTE .STK-MED ONE Ketorolac Tromethamine 30 mg 02/16/25 00:12 02/16/25 00:14 Ketorolac Tromethamine 30 Mg/Ml Inj IM 02/16/25 00:13 30 mg STAT ONE Administration Ketorolac Tromethamine Confirm 02/16/25 00:13 Ketorolac Tromethamine 30 Mg/Ml Inj Administered 02/16/25 00:14 Dose 30 mg .ROUTE .STK-MED ONE - Progress Progress: improved Progress Note: 24-year-old female no significant past medical history presents to our ED for evaluation of right elbow pain 1 day post ground-level fall onto grass. No other injuries reported. Physical exam reveals tenderness at the olecranon and dorsal elbow. The involved extremities neurovasc intact distally. Compartments are soft cap refill less than 2 seconds. Overlying soft tissue intact. No obvious abrasions or soft tissue injuries. There is some tenderness to palpation and limited range of motion due to pain. Patient received Toradol and Tylenol for pain control. X-ray of the involved extremity appears to be negative for fracture or dislocation. No sail sign or posterior fat pad. Patient placed in a right upper extremity sling. Patient referred to the orthopedic clinic for follow-up. Patient appears to be resting comfortably. She understands that her read today was preliminary and that a formal read is pending. Patient agrees to follow-up as discussed. She voices no other complaints or concerns at this time. History obtained from patient. Differential diagnosis includes elbow contusion, occult fracture, ligamentous sprain muscular strain Dr. Cheek independently reviewed and interpreted the x-ray. This is a preliminary read. Formal read pending. Portions of this note were created with voice recognition technology. There may be grammatical, spelling, punctuation or sound alike errors Complexity of problems addressed is moderate acute complicated. No critical care time. Complexity of data reviewed and analyzed is moderate. Test ordered chest reviewed results analyzed and correlated clinically with history and physical exam. Risk of complication and or risk of morbidity/mortality of patient management is moderate. A prescription for Keflex forwarded to patient's pharmacy. Patient referred to the orthopedic clinic for follow-up. Vital stable. Time spent to discharge patient is approximately 15 minutes. Plan of care established for shared decision making. No social determinants of health present to impede follow-up. Portions of this note were created with voice recognition technology. There may be grammatical, spelling, punctuation or sound alike errors 02/16/25 00:37 Counseled pt/family regarding: diagnosis, need for follow-up, rad results - Departure Departure Disposition: Home Clinical Impression: Fall, Elbow contusion Condition: Stable Critical Care Time: No Referrals: JUNE STOUT MD [Primary Care Provider, [facility]] - Follow up/PCP as directed Additional Instructions: Discharge/Care Plan DEON PERDUE was seen on 02/16/25 in the Emergency Room. The patient was counseled regarding Diagnosis,Lab results, Imaging studies, need for follow up and when to return to the Emergency Room. Prescriptions given: Discharge Note I have spoken with the patient and/or caregivers. I have explained the patient's condition, diagnosis and treatment plan based on the information available to me at this time. I have answered the patient's and/or caregiver's questions and addressed any concerns. The patient and/or caregivers have as good understanding of the patient's diagnosis, condition and treatment plan as can be expected at this point. The vital signs have been stable. The patient's condition is stable and appropriate for discharge from the emergency department. The patient will pursue further outpatient evaluation with the primary care physician or other designated or consulting physician as outlined in the discharge instructions. The patient and/or caregivers are agreeable to this plan of care and follow-up instructions have been explained in detail. The patient and/or caregivers have received these instruction. The patient/and or caregivers are aware that any significant change in condition or worsening of symptoms should prompt an immediate return to this or the closest emergency department or call 911. Prescriptions: Ketorolac Trometh 10 mg Tab [TORAdol 10 MG TABLET] 10 mg PO TID 5 Days #15 tablet Outpatient Orders: Ortho Referral Time Frame: 1 Day, Facility: [facility], Location: ORTHO CLINIC
[2025-02-16 00:44] VITALS: BP 121/78; PULSE 71; RESP 16
--- NOTE | 2025-02-16 08:52 | XRAY ---
Indication: Pain following fall. Comparison: None 3 view right elbow obtained. No bony, articular, or soft tissue abnormalities.
== END 2025-02-16 00:44 | disposition home or self-care (01) ==
LOC: ED 22:28
DX: S50.01XA Contusion of right elbow, initial encounter (principal); W01.0XXA Fall on same level from slipping, tripping and stumbling without subsequent striking against object, initial encounter; Z79.899 Other long term (current) drug therapy